=== PATIENT | male | born 1990 | race Caucasian/White ===

== ENCOUNTER 2018-01-04 08:30 | Outpatient (CLI) | payer OTHER ==
[2015-02-13 17:11] VITALS: O2SAT 96
== END 2018-01-04 08:31 | disposition home or self-care (01) | DRG 556 ==
LOC: CONVCARE 08:30
PROVIDERS: ATTEND Orthopaedic Surgery
DX: M25.561 Pain in right knee (principal)
CPT/HCPCS: 73564